=== PATIENT | female | born 1990 | race Caucasian/White ===

== ENCOUNTER 2018-08-22 10:50 | Inpatient (IN) | payer OTHER, SELFPAY ==
--- NOTE | 2018-08-22 12:00 | P.PCNOB_ITS ---
Delivery date: 08/22/18 Intrapartal events: Precipitous Labor < 3 hours Cervical ripening method: none Induction method: none Delivery monitor: external FHT and external uterine Route of delivery: Episiotomy description: None L&D Laceration Description: None Estimated blood loss (mL): 250 Anesthesia type: None Complications: None Narrative: Patient is a 28-year-old five para three who presented with flu symptoms and a positive diagnosis of influenza to our emergency room. She is a patient at the [facility]. She was seen yesterday with a diagnosis of fluid evidently confirmed by swab and sent home. She presents today in active labor. Standard respiratory precautions were taken patient was admitted. She had a rapid labor and spontaneous vaginal delivery of a live-born female infant with scores of nine at 1 min nine at 5 min in good condition. There is no PCR me. There were no cervical vaginal or perineal tears. Placenta delivered spontaneous. The estimated blood loss was 250 cc. Plan for aftercare: Respiratory isolation
--- NOTE | 2018-08-22 12:01 | PM.OBHP.1 ---
OB HPI Date/Time Date of admission: 08/22/18 Date Patient Seen: 08/22/18 Time Patient Seen: 12:01 History of Present Condition Chief complaint: OBSERVATION OF LABOR : 5 Para: 3 Estimated Date of Delivery: 09/01/18 Estimated Gestational Age (weeks): 38 and Narrative: Trena Nance is a 28 year old female who was seen at the [facility] yesterday having contractions and the diagnosis of influenza was made by nasal swab. Patient was sent home and presented today to our emergency room the similar history but was in active labor. She was transferred to the OB floor. History of Present care: good care and pounds weight gain (25) Dating criteria: LMP confirmed by 1st trimester US Ultrasounds: normal 1st trimester US and normal mid trimester US Obstetrical complications: other (Influenza diagnosed by nasal swelling) Medical complications: respiratory Narrative: Patient presented with influenza Preadmission Labs Blood type: AB (+) positive -: Antibody screen: negative, Cystic fibrosis screen: unknown, GBS status: negative, HBsAG: negative, HIV: negative, HSV 1: unknown, HSV 2: unknown and RPR/VDLR: negative -: Chlamydia screen: not detected and Gonorrhea screen: not detected -: Rubella: immune and Varicella: immune HCT: 38.4 HCAB: negative PAP: Normal Quad screen: Normal Narrative: Patient is a 28-year-old five para three followed at the [facility] in [place] without difficulties patient had adequate fundal growth. She remained normotensive throughout her . Her urine remained negative for glucose and protein. Patient was seen at the [facility] with signs and symptoms of the flu and evidently nasal swabs were positive. She was begun on Tamiflu. Patient then presented to our emergency room in active labor. Meds Allergies Allergy/AdvReac Type Severity Reaction Status Date / Time No Known Allergies Allergy Uncoded 10/25/17 14:52 Exam Vital Signs (past 8 hours): HEENT within normal limits Chest clear to percussion auscultation Cardiovascular system normal sinus rhythm 38 cm fundus Cervical exam initially was 4 cm Assessment and Plan (1) Term : Onset Date: ~08/22/18 Problem details: Patient in active labor with influenza Current visit: Yes Status: Acute Patient in active labor with influenza Plan: Respiratory isolation Continue Tamiflu
--- NOTE | 2018-08-22 12:12 | P.HPOB_ITS ---
OB HPI Date/Time Date of admission: 08/22/18 Date Patient Seen: 08/22/18 Time Patient Seen: 12:01 History of Present Condition Chief complaint: OBSERVATION OF LABOR : 5 Para: 3 Estimated Date of Delivery: 09/01/18 Estimated Gestational Age (weeks): 38 and Narrative: Trena Nance is a 28 year old female who was seen at the [facility] yesterday having contractions and the diagnosis of influenza was made by nasal swab. Patient was sent home and presented today to our emergency room the similar history but was in active labor. She was transferred to the OB floor. History of Present care: good care and pounds weight gain (25) Dating criteria: LMP confirmed by 1st trimester US Ultrasounds: normal 1st trimester US and normal mid trimester US Obstetrical complications: other (Influenza diagnosed by nasal swelling) Medical complications: respiratory Narrative: Patient presented with influenza Preadmission Labs Blood type: AB (+) positive -: Antibody screen: negative, Cystic fibrosis screen: unknown, GBS status: negative, HBsAG: negative, HIV: negative, HSV 1: unknown, HSV 2: unknown and RPR/VDLR: negative -: Chlamydia screen: not detected and Gonorrhea screen: not detected -: Rubella: immune and Varicella: immune HCT: 38.4 HCAB: negative PAP: Normal Quad screen: Normal Narrative: Patient is a 28-year-old five para three followed at the [facility] in [place] without difficulties patient had adequate fundal growth. She remained normotensive throughout her . Her urine remained negative for glucose and protein. Patient was seen at the [facility] with signs and symptoms of the flu and evidently nasal swabs were positive. She was begun on Tamiflu. Patient then presented to our emergency room in active labor. Meds Allergies Allergy/AdvReac Type Severity Reaction Status Date / Time No Known Allergies Allergy Uncoded 10/25/17 14:52 Exam Vital Signs (past 8 hours): HEENT within normal limits Chest clear to percussion auscultation Cardiovascular system normal sinus rhythm 38 cm fundus Cervical exam initially was 4 cm Assessment and Plan (1) Term : Onset Date: ~08/22/18 Problem details: Patient in active labor with influenza Current visit: Yes Status: Acute Patient in active labor with influenza Plan: Respiratory isolation Continue Tamiflu
--- NOTE | 2018-08-22 12:52 | PC.NURSE ---
Late Entry- patient arrived in Emergency department around 0930 c/o severe cervix pain. Patient 38weeks and tested positive for the flu yesterday started on Tamiflu. Patient placed in respiratory precautions and Labor and delivery called to monitor patient. Patient confirmed in labor, dialted 4 cm and 90% effaced. Transferred to L&D.
[2018-08-22 14:53] VITALS: BP 120/70
[2018-08-22] MEDS: IBUPROFEN 600 MG TABLET PO ×2 (16:08→23:01)
[2018-08-22 16:26] LABS: Add Manual Diff / Slide Review NO; Basophils Absolute Auto 0 /uL (0-100); Basophils Percent Auto 0.4 % (0-2); Eosinophils Absolute Auto 0 /uL (0-450); Hematocrit 33.8 % (36-46); Hemoglobin 11.5 g/dL (12.0-16.0); Lymphocytes Absolute Auto 800 /uL (1100-4500); Lymphocytes Percent Auto 11.5 % (25-40); Mean Corpuscular HGB Conc 33.8 % (30-36); Mean Corpuscular Hemoglobin 31.3 PG (26-34); Mean Corpuscular Volume 92.5 fL (80-100); Monocytes Absolute Auto 500 /uL (0-900); Monocytes Percent Auto 7.4 % (3-14); Neutrophils Absolute Auto 5700 /uL (1500-7000); Neutrophils Percent Auto 80.7 % (50-75); Platelet Count 265 X10^3/uL (150-400); Red Blood Cell Count 3.66 X10^6/uL (4.0-5.2); Red Cell Distribution Width 13.2 % (11.6-14.8); White Blood Cell Count 7.1 X10^3/uL (4.5-11.0)
[2018-08-22] MEDS: OSELTAMIVIR 30 MG CAPSULE PO (21:02)
[2018-08-23 06:54] LABS: Hematocrit 32.9 % (36-46); Hemoglobin 11.1 g/dL (12.0-16.0)
[2018-08-23] MEDS: FERROUS GLUCONATE 324 MG TABLET PO (09:03)
[2018-08-23 09:04] VITALS: TEMP 36.7
[2018-08-23] MEDS: OSELTAMIVIR 30 MG CAPSULE PO ×2 (09:04→21:11)
[2018-08-23] MEDS: IBUPROFEN 600 MG TABLET PO ×3 (09:04→21:10)
[2018-08-23] MEDS: OSELTAMIVIR 75 MG CAPSULE PO (21:11)
[2018-08-24] MEDS: FERROUS GLUCONATE 324 MG TABLET PO (09:12)
[2018-08-24] MEDS: OSELTAMIVIR 30 MG CAPSULE PO (09:12)
[2018-08-24 10:38] VITALS: BP 116/74; PULSE 94; RESP 16; TEMP 37.4
[2018-08-24] MEDS: IBUPROFEN 600 MG TABLET PO (13:59)
--- NOTE | 2018-08-27 06:15 | PM.OBPN.1 ---
Subjective - OB Patient comments: no complaints baby status: doing well feeding status: exclusively breast feeding Narrative: Patient is a 28 year day # 1 status post spontaneous vaginal delivery Patient positive for influenza Date Patient Seen: 08/23/18 Time Patient Seen: 08:45 Exam Vital Signs (past 8 hours): Generally: Patient is sitting up in bed, no acute distress Fundus: Firm at U -1 Extremities: Negative Homans, no edema Objective Labs Result Diagrams: 08/23/18 06:40 Assessment & Plan (1) Term : Problem details: Patient in active labor with influenza Status: Acute Current Visit: No (2) Status post vaginal delivery: Status: Acute Assessment and plan: Assessment: 28-year-old 4 para 4 day # 1 status post spontaneous vaginal delivery Patient with influenza Plan: Continue Tamiflu Continue routine care Anticipated discharge 08/24/2018 Current Visit: No Time Spent With Patient Total time spent is greater than 50% in coordination of care (as documented) at patient's floor/unit and/or counseling patient: 15-24 minutes
--- NOTE | 2018-09-03 11:39 | P.DS_ITS ---
Discharge Providers Date of admission: 08/22/18 10:50 Discharge Date: 08/24/18 Primary care physician: Phu Cobian MD Consults: 08/22/18 12:12 Consult to [facility] Routine Comment: Discharge provider: Lalo Trinidad MD Summary Date Patient Seen: 09/21/18 Time Patient Seen: 08:36 Procedures: Spontaneous vaginal delivery Hospital Course: The patient is a 28-year-old admitted to the hospital because lack of facilities at the [facility]. She had been seen and followed there. She carries the diagnosis of type a influenza. And was being treated with Tamiflu. That dose was increased to 105 mg because of CDC recommendations. The patient had a rapid labor and spontaneous vaginal delivery of a live-born . There were no complications. Post delivery she did well. She remained afebrile stable vital signs and was progressively element and ambulated. She was maintained on Tamiflu 105 mg and discharged home on that dosage. For follow-up with the [facility] Peripartum Data Delivery Method: Natural Vaginal Laceration description: None Discharge Diagnosis (1) Term : Status: Acute Problem Details: Patient in active labor with influenza (2) Status post vaginal delivery: Status: Acute Status at Discharge Cognitive/behavioral status at discharge: oriented Functional status at discharge: independent ambulation Overall status at discharge: patient is back to baseline Time Spent with Patient Total time spent providing and/or coordinating discharge services: Objective Labs Result Diagrams: 08/23/18 06:40 Discharge Plan Discharge Plan Patient Disposition: Home Discharge comment: Call with fever, chills or bleeding vaginally more than a pad in an hour Discharge Med Rec/Prescriptions Prescriptions: New oseltamivir [Tamiflu] 30 mg capsule 30 mg PO DAILY Qty: 6 RF: 0 Continued Tamiflu 75 mg 75 mg PO BID RF: 0 Follow up/Referrals: Phu Cobian MD [Primary Care Provider] - (Call to schedule follow up appointment with Dr. Cobian in 4-6 weeks) Provider Discharge Instructions Diet: Diet as Tolerated Activity: No intercourse Skin/Wound/Dressing Care Report to your healthcare provider any signs of infection, such as:: chills, fever, increased pain and unusual drainage Visit Report/Discharge Packet Instructions: DI for Labor and Delivery, Vaginal Stand Alone Forms: Discharge: Care Discharge Data Primary Care Provider: Phu Cobian Attending Provider: Chelsea Morgan Admit Date/Time: 08/22/18 10:50 Discharges patient from system. Discharge Date/Time: 08/24/18 14:05
== END 2018-08-24 14:05 | disposition home or self-care (01) | DRG 807 ==
PROVIDERS: Admitting Provider Obstetrics & Gynecology; Family Provider Family Medicine; PCP Family Medicine; Visit Provider Obstetrics & Gynecology
DX: O98.52 Other viral diseases complicating childbirth (principal); Z37.0 Single live birth; J11.1 Influenza due to unidentified influenza virus with other respiratory manifestations; Z3A.38 38 weeks gestation of pregnancy; O62.3 Precipitate labor
CPT/HCPCS: 59050; 59409; 85014; 85018; 85025; 86850; 86900; 86901; 99222; 99238; G0379

== ENCOUNTER 2019-06-09 23:18 | Emergency (ER) | payer OTHER, SELFPAY ==
[2019-06-09 23:27] VITALS: BP 140/85; PULSE 82; RESP 16; TEMP 36.9; O2SAT 98; BMI 23.6
[2019-06-09 23:35] LABS: Bilirubin Urine UA NEGATIVE (NEGATIVE); Glucose Urine UA NEGATIVE (Negative); Ketones Urine UA NEGATIVE (NEGATIVE); Leukocyte Esterase Urine UA 3+ (NEGATIVE); Nitrite Urine UA NEGATIVE (Negative); Occult Blood Urine UA 3+ (Negative); Protein Urine UA 1+ (Negative); Specific Gravity Urine UA <=1.005 (1.000-1.035); Urobilinogen Urine UA 0.2 E.U./dL (0.2)
[2019-06-09 23:37] LABS: Appearance Urine UA Slightly Cloudy; Color Urine UA LIGHT PINK
[2019-06-09 23:39] LABS: Pregnancy Test Urine Negative (Negative)
--- NOTE | 2019-06-09 23:39 | ED.GENADULT ---
HPI - General Adult General Chief complaint: Urogenital-Female Stated complaint: states possible uti Time Seen by Provider: 06/09/19 23:26 Source: patient Mode of arrival: Ambulatory Limitations: no limitations History of Present Illness HPI narrative: Otherwise healthy 29-year-old female here for evaluation of approximately 24 hours of dysuria, urinary frequency, lower back pain, hematuria. States she has never had a urinary tract infection in the past. Some nausea but no vomiting. No fevers. Has not tried anything for symptoms prior to arrival. Related Data Home Medications Medication Instructions Recorded Confirmed Tamiflu 75 mg PO BID 08/22/18 08/22/18 Previous Rx's Medication Instructions Recorded oseltamivir [Tamiflu] 30 mg PO DAILY #6 cap 08/23/18 nitrofurantoin monohyd/m-cryst 100 mg PO Q12H 5 Days #10 cap 06/10/19 [Macrobid] phenazopyridine [Pyridium] 100 mg PO TID PRN #6 tab 06/10/19 Allergies Allergy/AdvReac Type Severity Reaction Status Date / Time No Known Drug Allergies Allergy Verified 08/22/18 12:17 Review of Systems Constitutional Constitutional: Denies fever(s) Gastrointestinal Gastrointestinal: Reports nausea and Denies vomiting Genitourinary Genitourinary: Reports urinary frequency, Reports dysuria, Denies urinary incontinence, Reports urinary hesitancy, Reports urinary urgency and Denies vaginal discharge Integumentary/Breasts Skin/Breast: Denies rash Hematologic/Lymphatic Hematologic/Lymphatic: Denies easy bleeding and Denies easy bruising Patient History Medical History Term (Inactive ~08/22/18) Social History Smoking Status: Never smoker Smoking Status: Never smoker alcohol intake frequency: 0-2 drinks per day Substance Use Type: does not use Exam Initial Vital Signs Initial Vital Signs: Vital Signs Temperature 98.4 F 06/09/19 23:27 Pulse Rate 82 06/09/19 23:27 Respiratory Rate 16 06/09/19 23:27 Blood Pressure 140/85 06/09/19 23:27 Pulse Oximetry 98 06/09/19 23:27 Const General: cooperative, comfortable and well developed Orientation: alert and awake HENIA Head: normal to inspection and normocephalic Cardio Rate: regular rate Back/Spine/Pelvis Back: No CVA tenderness Neuro General: alert and awake Cognition: normal cognition Speech: speech normal Gait: normal gait Extrem General: normal to inspection and capillary refill normal Course Orders Ordered: ED Orders 06/09/19 23:25 Test Urine Stat Urinalysis and Microscopic Stat Urine Culture Stat Discontinued Medications Nitrofurantoin Macrocrystals (Macrobid 100 Mg Capsule) 100 mg PO NOW ONE Stop: 06/09/19 23:58 Last Admin: 06/10/19 00:09 Dose: 100 mg Documented by: MMCFARL Phenazopyridine HCl (Pyridium) 100 mg PO NOW ONE Stop: 06/09/19 23:58 Last Admin: 06/10/19 00:09 Dose: 100 mg Documented by: MMCFARL Vital Signs Vital signs: Vital Signs - 8 hr 06/09/19 23:27 06/10/19 00:15 Temperature 98.4 F Pulse Rate 82 79 Respiratory Rate 16 14 Blood Pressure 140/85 133/78 Pulse Oximetry 98 100 Medical Decision Making Lab Data Lab results reviewed: Yes I reviewed the patient's lab results. Labs: Lab Results 06/09/19 06/09/19 Range/Units 23:25 23:25 Urine Color Light pink Urine Appearance Slightly cloudy Urine pH 7.0 (4.5-8.0) Ur Specific [place] <=1.005 (1.000-1.035) Urine Protein 1+ H (Negative) Urine Glucose (UA) Negative (Negative) g/dL Urine Ketones Negative (NEGATIVE) Urine Occult Blood 3+ H (Negative) Urine Nitrate Negative (Negative) Urine Bilirubin Negative (NEGATIVE) Urine Urobilinogen 0.2 (0.2) E.U./dL Ur Leukocyte Esterase 3+ H (NEGATIVE) Urine RBC 1-5/hpf (0-5/HPF) Urine WBC 10-30/hpf H (0-5/HPF) Ur Squamous Epith Cells 0-1 /hpf (0-5/HPF) Urine Bacteria Few (2-10) H (None) Ur Culture Indicated? Specimen cultured Urine Test Negative (Negative) Urine Dip Bedside Urine Glucose Negative Bedside Urine Bilirubin - Negative Bedside Urine Ketone - Negative Urine Specific [place] 1.005 Bedside Urine Occult Blood +++ Bedside Urine pH 6.5 Bedside Urine Protein + 30 Bedside Urine Urobilinogen - Negative Bedside Urine Nitrite - Negative Bedside Urine Leukocytes +++ 500 Esterase Point of care testing: Urine Dip Bedside Urine Glucose Negative Bedside Urine Bilirubin - Negative Bedside Urine Ketone - Negative Urine Specific [place] 1.005 Bedside Urine Occult Blood +++ Bedside Urine pH 6.5 Bedside Urine Protein + 30 Bedside Urine Urobilinogen - Negative Bedside Urine Nitrite - Negative Bedside Urine Leukocytes +++ 500 Esterase MDM Narrative Medical decision making narrative: Patient's history and physical exam was consistent with UTI. test was negative. She has never had a UTI in the past. She was given a dose of Macrobid here in the ER in a prescription for the remainder. Urine culture is pending at the time of discharge. She was informed that we will call if we need to change antibiotics. She was also given a dose of Pyridium for her symptoms. Was given a prescription for this as well. She is given return precautions and follow-up instructions. She expressed understanding and agreement plan. Discharge Plan Departure Patient Disposition: Home Clinical Impression: Urinary tract infection Qualifiers: Urinary tract infection type: acute cystitis Hematuria presence: with hematuria Qualified Code(s): N30.01 - Acute cystitis with hematuria Discharge Date/Time: 06/10/19 00:15 Instructions: DI for Urinary Tract Infection (UTI) Activity Restrictions/Additional Instructions: Take the antibiotics as directed. A culture was pending at the time of discharge. We will contact you if we need to change any antibiotic regiment. Contact her primary provider for follow-up. Return to the emergency department for any new or worsening symptoms Prescriptions: New nitrofurantoin monohyd/m-cryst [Macrobid] 100 mg capsule 100 mg PO Q12H 5 Days Qty: 10 RF: 0 phenazopyridine [Pyridium] 100 mg tablet 100 mg PO TID PRN (Reason: pain) Qty: 6 RF: 0 No Action Tamiflu 75 mg 75 mg PO BID RF: 0 oseltamivir [Tamiflu] 30 mg capsule 30 mg PO DAILY Qty: 6 RF: 0 Referrals: Phu Cobian MD [Primary Care Provider] -
[2019-06-09 23:49] LABS: RBC Urine 1-5/HPF (0-5/HPF); Squamous Epithelial Cell Urine 0-1 /HPF (0-5/HPF); WBC Urine 10-30/HPF (0-5/HPF)
[2019-06-09 23:50] LABS: Bacteria Urine Few (2-10); Culture Indicated Urine Specimen Cultured
[2019-06-10] MEDS: NITROFURANTOIN ER 100 MG CAPSULE PO (00:09)
[2019-06-10] MEDS: PHENAZOPYRIDINE 100 MG TABLET PO (00:09)
[2019-06-10 00:15] VITALS: BP 133/78; PULSE 79; RESP 14; O2SAT 100
== END 2019-06-10 00:15 | disposition home or self-care (01) ==
PROVIDERS: Emergency Provider Emergency Medicine; Family Provider Family Medicine; PCP Family Medicine
DX: N30.01 Acute cystitis with hematuria (principal)
CPT/HCPCS: 81001; 81003; 81025; 87077; 87086; 87186; 99283